=== PATIENT | male | born 1970 | race Caucasian/White ===

== ENCOUNTER 2017-11-23 06:40 | Day surgery (SDC) | payer BC, OTHER ==
[~2017-11-23 06:40] MED LIST: Lactated Ringers 1,000 ML IV SCH; Sodium Chloride 0.9% 10 ML Syringe FLUSH PRN; Sodium Chloride 0.9% 2.5 ML Syringe FLUSH PRN; ceFAZolin 2 GM in Premix Bag 1 BAG IV ONE
--- NOTE | 2017-11-23 07:17 | PCM.PREANE ---
Preanesthetic Assessment - Anesthesia/Transfusion/Family Hx Anesthesia History: Prior Anesthesia Without Reaction Family History of Anesthesia Reaction: No Transfusion History: No Prior Transfusion(s) - Review of Systems General: No Symptoms Pulmonary: No Symptoms Cardiovascular: No Symptoms Gastrointestinal: No Symptoms Neurological: No Symptoms Other: Reports: None - Physical Assessment NPO Status Date: 11/22/17 O2 Sat by Pulse Oximetry: 96 Respiratory Rate: 16 Vital Signs: Last Vital Signs Temp 36.6 C 11/23/17 06:57 Pulse 82 11/23/17 06:57 Resp 16 11/23/17 06:57 BP 123/81 11/23/17 06:57 Pulse Ox 96 11/23/17 06:57 Height: 1.83 m Weight: 97.069 kg ASA Class: 1 Mental Status: Alert & Oriented x3 Airway Class: Mallampati = 1 Dentition: Reports: Normal Dentition Lungs: Clear to Auscultation, Normal Respiratory Effort Cardiovascular: Regular Rate, Regular Rhythm - Allergies Allergies/Adverse Reactions: Allergies Allergy/AdvReac Type Severity Reaction Status Date / Time No Known Allergies Allergy Verified 11/16/17 16:33 - Anesthesia Plan Pre-Op Medication Ordered: None - Acknowledgements Anesthesia Type Planned: General Anesthesia Pt an Appropriate Candidate for the Planned Anesthesia: Yes Alternatives and Risks of Anesthesia Discussed w Pt/Guardian: Yes Pt/Guardian Understands and Agrees with Anesthesia Plan: Yes PreAnesthesia Questionnaire - Past Health History Medical/Surgical History: Denies Medical/Surgical History HEENT History: Reports: Other (See Below) Other HEENT History: wears glasses Musculoskeletal History: Reports: Fracture Other Musculoskeletal History: hx of fx wrist, fingers and ribs Psychiatric History: Reports: Depression - Past Surgical History Head Surgeries/Procedures: Reports: None HEENT Surgical History: Reports: Oral Surgery Other HEENT Surgeries/Procedures: hx of Mandibular Osteotomy (has 3 screws in jaw) Musculoskeletal Surgical History: Reports: Arthroscopic Knee Other Musculoskeletal Surgeries/Procedures:: ACL repair left knee (has 3 screws) - SUBSTANCE USE Smoking Status *Q: Former Smoker Tobacco Use Within Last Twelve Months: Smokeless Tobacco Recreational Drug Use History: No - HOME MEDS Home Medications: Home Meds Sertraline HCl [Zoloft] 200 mg PO BEDTIME 11/02/14 [History] - CURRENT (IN HOUSE) MEDS Current Meds: Current Medications Lactated Ringer's (Ringers, Lactated) 1,000 mls @ 125 mls/hr IV ASDIRECTED PHILLY Last Admin: 11/23/17 07:09 Dose: 125 mls/hr Sodium Chloride (Saline Flush) 10 ml FLUSH ASDIRECTED PRN PRN Reason: Keep Vein Open Sodium Chloride (Saline Flush) 2.5 ml FLUSH ASDIRECTED PRN PRN Reason: Keep Vein Open Discontinued Medications Cefazolin Sodium/Dextrose 2 gm (/ Premix) 50 mls @ 100 mls/hr IV ONETIME ONE Stop: 11/22/17 09:59
[2017-11-23] MEDS ORDERED: Bupivacaine 0.5% 30 ML SDV ONE (07:18)
[2017-11-23] MEDS ORDERED: Ondansetron 4 MG/2 ML SDV ONE (07:25)
[2017-11-23] MEDS ORDERED: Lidocaine 2% 5 ML SDV ONE (07:25)
[2017-11-23] MEDS ORDERED: Midazolam 1 MG/ML 2 ML SDV ONE (07:25)
[2017-11-23] MEDS ORDERED: Propofol 200 MG/20 ML SDV ONE (07:25)
[2017-11-23] MEDS ORDERED: fentaNYL 250 MCG/5 ML SDV ONE (07:26)
[2017-11-23] MEDS ORDERED: ePHEDrine 50 MG/ML SDV ONE (07:56)
[2017-11-23] MEDS ORDERED: Glycopyrrolate 0.2 MG/ML SDV ONE ×2 (07:57→08:03)
[2017-11-23] MEDS ORDERED: fentaNYL 100 MCG/2 ML SDV IVPUSH PRN (08:12)
[2017-11-23] MEDS ORDERED: Phenylephrine/Normal Saline 100 MCG/ML 10 ML Syringe ONE (08:23)
[2017-11-23] MEDS ORDERED: Succinylcholine 200 MG/10 ML MDV ONE (08:58)
[2017-11-23] MEDS ORDERED: Acetaminophen/oxyCODONE 325-5 MG Tab PO PRN (09:13)
--- NOTE | 2017-11-23 09:13 | PCM.OPNOTE ---
- General Post-Op/Procedure Note Date of Surgery/Procedure: 11/23/17 Operative Procedure(s): Right inguinal hernia repair Findings: Large multilobular cord lipoma Pre Op Diagnosis: Right inguinal hernia Post-Op Diagnosis: Right inguinal hernia Anesthesia Technique: General LMA Primary Surgeon: Yvonne PAGAN in mLs: 10 Condition: Good
--- NOTE | 2017-11-23 10:16 | OR ---
SURGEON: ULYSSES YOON MD DATE OF PROCEDURE: 11/23/2017 PREOPERATIVE DIAGNOSIS: Right inguinal hernia. POSTOPERATIVE DIAGNOSIS: Right inguinal hernia. PROCEDURE PERFORMED: Right inguinal hernia repair. ANESTHESIA: General LMA. FLUIDS: 1700 mL crystalloid. ESTIMATED BLOOD LOSS: 10 mL. FINDINGS: Large multilobular cord lipoma extending through the internal ring down along the cord. COMPLICATIONS: None. INDICATIONS: The patient is a 47-year-old male, who developed a right groin bulge over the winter. It has been increasing in size and it is becoming painful. On physical exam, I noted a right inguinal hernia. This was confirmed with an ultrasound. The patient and I discussed the need for an inguinal hernia repair. I discussed the procedure, expected perioperative course, and the risks including bleeding, infection, or damage to surrounding structures. The patient verbalized understanding and wishes to proceed. PROCEDURE IN DETAIL: The patient was brought into the OR and placed on the OR table in supine position. A time-out was completed verifying the patient's name, age, date of , allergies, and procedure to be performed. The lower part of the abdomen and genitalia were prepped and draped in usual standard fashion. I anesthetized an area 2 fingerbreadths above the inguinal ligament with 0.5% Marcaine plain. An oblique incision was made using a 15 blade scalpel approximately 5 cm in length. Dissection was then carried down with electrocautery through Ken's fascia maintaining hemostasis. Once the external oblique was identified, it was incised along the length of its fibers with a 15 blade scalpel. Metzenbaum scissors was then used to extend the incision in both directions opening up the external oblique down to the external ring. Next, the external oblique was grasped with hemostat on both sides. The cord and cord structures as well as the hernia sac were freed up circumferentially and a Misbah drain was placed around it. I inspected the cord contents. The patient had a very large cord lipoma that was extending down along the anterior aspect of the cord through the internal ring. This was multilobular and extended down towards the scrotum. Using some blunt dissection, I freed up the cord lipoma and reduced it back into the abdomen through the internal ring. A medium-sized mesh patch and plug were then brought into the field. The patch was then placed through the internal ring effectively holding the cord lipoma in a reduced position. I then secured the mesh plug to the surrounding internal ring with interrupted 0 Ethibond sutures. The mesh patch was then sutured to the pubic tubercle medially along the ilioinguinal ligament inferiorly and along the conjoint tendon superiorly. The cord was encircled with the mesh. I identified the ilioinguinal nerve and preserved it. I used interrupted 0 Ethibond sutures to secure the mesh. Care was taken to not strangulate the cord with my mesh. I then irrigated the field. It appeared to be hemostatic. The external oblique was then closed over the roof with a running 0 Vicryl suture taking care not to strangulate the cord and recreate the external ring. I then injected the subcutaneous fat with more 0.5% Marcaine plain. The subcutaneous fat layer was closed with a running 3-0 Vicryl suture. The skin was closed with a running 4-0 Monocryl stitch. Steri-Strips and sterile dressings were applied. The patient tolerated the procedure well and was taken to PACU in stable condition. NAN PARRA /[id number] CARMINA
--- NOTE | 2017-11-23 10:53 | PCM.POSTAN ---
POST ANESTHESIA ASSESSMENT - MENTAL STATUS Mental Status: Alert, Oriented - RESPIRATORY Respiratory Status: Respiratory Rate WNL, Airway Patent, O2 Saturation Stable - CARDIOVASCULAR CV Status: Pulse Rate WNL, Blood Pressure Stable - GASTROINTESTINAL GI Status: No Symptoms - POST OP HYDRATION Hydration Status: Adequate & Stable
--- NOTE | 2017-11-23 11:19 | PCM48HPAN ---
Post Anesthesia Note - EVALUATION WITHIN 48HRS OF ANESTHETIC Vital Signs in Normal Range: Yes Patient Participated in Evaluation: Yes Respiratory Function Stable: Yes Airway Patent: Yes Cardiovascular Function Stable: Yes Hydration Status Stable: Yes Pain Control Satisfactory: Yes Nausea and Vomiting Control Satisfactory: Yes Mental Status Recovered: Yes Resp Rate: 14
[2017-11-23 13:24] VITALS: BP 122/76
== END 2017-11-23 13:45 | disposition home or self-care (01) ==
LOC: MW.SDS 06:40
PROVIDERS: ATTEND Surgery
DX: K40.90 Unilateral inguinal hernia, without obstruction or gangrene, not specified as recurrent (principal); D17.6 Benign lipomatous neoplasm of spermatic cord; F32.9 Major depressive disorder, single episode, unspecified; Z87.891 Personal history of nicotine dependence; Z79.899 Other long term (current) drug therapy
CPT/HCPCS: 49505; A9270; C1781; J0330; J2250; J2370; J2405; J2704; J3010; J3490; J7120